=== PATIENT | female | born 1970 | race American Indian/Alaskan Native ===

== ENCOUNTER 2025-05-04 21:36 | Inpatient (IN) | payer MEDICARE ==
[~2025-05-04] VITALS: Ht 165.1 cm; Wt 108.1 kg
[2025-05-04] MEDS ORDERED: LACTATED RINGER'S 1,000 ML IV ONE (21:45)
[2025-05-04] MEDS ORDERED: IBLOOD GLUCOSE TEST STRIP 1 EA TEST XX ONE (21:45)
[2025-05-04 21:48] LABS: BASOPHILS 0.6 % (0.1-1.2); EOSINOPHILS 2.9 % (0.7-5.8); LYMPHOCYTES 12.1 % (19.3-51.7); MCH 29.2 PG (25.6-32.2); MCHC 32.1 g/dL (32.2-35.5); MCV 91.0 fL (79.4-94.8); MONOCYTES 7.5 % (4.7-12.5); NEUTROPHILS 76.4 % (34.0-71.1); RBC 4.01 M/uL (3.93-5.22)
[2025-05-04 22:25] LABS: INR 1.03 (0.80-1.30); PROTIME 12.8 Sec (11.2-14.2)
[2025-05-04] MEDS ORDERED: ACETAMINOPHEN 500 MG TAB PO ONE (22:30)
[2025-05-04 22:32] LABS: ALT (SGPT) 15.0 U/L (14-59); AST (SGOT) 20.0 U/L (15-37); GLOMERULAR FILTRATION RATE,EST 59.0 mL/min (>60); PROTEIN, TOTAL 6.9 g/dL (6.4-8.2); UREA NITROGEN 17.0 mg/dL (7-18)
[2025-05-04 22:33] LABS: LACTIC ACID, BLOOD 1.2 mmol/L (0.4-2.0)
[2025-05-04] MEDS ORDERED: ASPIRIN 81 MG CHEW PO ONE (22:45)
[2025-05-05] VITALS (15 sets, daily range): BP systolic 121–176; BP diastolic 56–74
[2025-05-05 00:05] LABS: BLOOD/HGB, URINE NEGATIVE (Negative); KETONE, URINE NEGATIVE (Negative); LEUK ESTERASE, URINE NEGATIVE (negative); NITRITE, URINE POSITIVE (negative)
[2025-05-05 00:05] LABS: CORONAVIRUS COVID-19 AG NEGATIVE (NEGATIVE)
[2025-05-05 00:11] LABS: BACTERIA, URINE 2+ /hpf (negative); CASTS, URINE NONE SEEN \\lpf; CRYSTALS, URINE NONE SEEN (0-1+); EPITHELIAL CELLS, URINE SQUAMOUS 1+ /lpf (0-1+); REFLEX CULTURE, URINE Yes (No)
[2025-05-05 00:19] LABS: AMPHETAMINES, URINE NEGATIVE (NEGATIVE); BARBITURATES, URINE NEGATIVE (NEGATIVE); BENZODIAZEPINE, URINE NEGATIVE (NEGATIVE); CANNABINOID, URINE NEGATIVE (NEGATIVE); COCAINE, URINE NEGATIVE (NEGATIVE); ECSTASY, URINE NEGATIVE (NEGATIVE); FENTANYL, URINE NEGATIVE (NEGATIVE); METHADONE, URINE NEGATIVE (NEGATIVE); OPIATES, URINE NEGATIVE (NEGATIVE); OXYCODONE, URINE NEGATIVE (NEGATIVE); PHENCYCLIDINE, URINE NEGATIVE (NEGATIVE)
[2025-05-05] MEDS ORDERED: IBLOOD GLUCOSE TEST STRIP 1 EA TEST XX PRN (00:30)
[2025-05-05] MEDS ORDERED: GLUCAGON,HUMAN RECOMBINANT 1 MG/ML VIAL SUB-Q PRN (00:30)
[2025-05-05] MEDS ORDERED: LACTATED RINGER'S 1,000 ML IV SCH (00:30)
[2025-05-05] MEDS ORDERED: DEXTROSE 5% 1,000 ML IV PRN (00:30)
[2025-05-05] MEDS ORDERED: DEXTROSE 50% 50 ML SYR IV PRN ×2 (00:30)
[2025-05-05] MEDS ORDERED: ACETAMINOPHEN 325 MG TAB PO PRN ×2 (00:30→10:45)
--- NOTE | 2025-05-05 00:55 | NUR ---
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 PATIENT IS ALERT AND ORIENTED, PATIENT TRANSFERED VIA SLIDER SHEET. SHE IS ABLE TO ANSWER ALL QUESTIONS. PUREWICK PLACED.
[2025-05-05] MEDS ORDERED: HYDROCODON-ACE1 EA10 PO (01:16)
[2025-05-05] MEDS ORDERED: BAQSIMI3 MG NAS (01:17)
[2025-05-05] MEDS ORDERED: OZEMPIC2 MG/0.75 INJ (01:19)
[2025-05-05] MEDS ORDERED: HUMALOG100 UNIT/1 SUB-Q (01:19)
[2025-05-05] MEDS ORDERED: LISINOPRIL10 MG PO (01:20)
[2025-05-05] MEDS ORDERED: LIPITOR40 MG PO (01:20)
--- NOTE | 2025-05-05 01:20 | NUR ---
[facility] IS NOT EFFECTIVE TOOL FOR ASSESSMENT WITH PATIENT SHE DOES NOT FULLY PARTICIPATE FOR EXAMPLE WHEN ASSESSING ARM DRIFT PATIENT DROPS ARM WITH NO RESISTANCE TO BED, YET WHEN HANDED HER CELL PHONE SHE WAS ABLE TO HOLD BOTH ARMS UP AND TYPE ON HER SCREEN WITNESSED BY JHONNY RN NIKIA GRIMES RN. PATIENT ALSO DENIES SENSATION OF HER LEFT LEG AND ARM, HOWEVER SHE IS NOT TO GRIMACE WITH PAINFUL STIMULI APPLIED VIA PRESSURE TO NAIL BED FOR FINGER AND TOE. SHE IS NOTED TO SPEAK CLEARLY AND APPROPRIATELY. ALERT AND ORIENTED.
[2025-05-05] MEDS ORDERED: GABAPENTIN600 MG PO (01:21)
[2025-05-05] MEDS ORDERED: METFORMIN HCL500 MG PO (01:21)
[2025-05-05] MEDS ORDERED: INSULIN GL300 UNIT/1 SUB-Q (01:23)
[2025-05-05] MEDS ORDERED: NARCAN4 MG (01:24)
[2025-05-05] MEDS ORDERED: LANTUS SOL100 UNIT/1 SUB-Q (01:24)
[2025-05-05] MEDS ORDERED: VAZALORE81 MG PO (01:25)
--- NOTE | 2025-05-05 05:06 | NUR ---
PATIENT REPORTS HEADACHE THIS AM, TYLENOL PRN ADMINISTERED. PATIENT REPORTS HER FEET ARE COLD, WARM BLANKET DRAPPED OVER HER FEET, NOTED HER MOVING HER LEFT FOOT UNDER THE BLANKET, PATIENT CONTINUES TO VERBALIZE UNABLE TO MOVE LEFT FOOT OR HAVE ANY SENSATION. PATIENT SWALLOWED TYLENOL TABLETS WELL, WITH NO ISSUES.
--- NOTE | 2025-05-05 06:50 | NUR ---
PATIENT RESTING IN BED, EYES CLOSED RESPIRATIONS REGULAR AT 20/MIN, SNORING NOTED. NO DISTRESS NOTED.
--- NOTE | 2025-05-05 07:49 | NUR ---
IN ROOM TO COMPLETE MORNING ASSESSMENT. PT CONTINUES TO HAVE LEFT SIDED WEAKNESS. PT UNABLE TO LEFT ARM. LEFT LEG MOVEMENT IMPROVED FROM ADMISSION.
[2025-05-05] MEDS ORDERED: INSULIN LISPRO 100 UNIT/ML ML SUB-Q SCH ×3 (08:00→12:00)
[2025-05-05] MEDS ORDERED: IBLOOD GLUCOSE TEST STRIP 1 EA TEST VI SCH (08:00)
[2025-05-05 08:03] LABS: BASOPHILS 0.6 % (0.1-1.2); EOSINOPHILS 1.6 % (0.7-5.8); LYMPHOCYTES 6.6 % (19.3-51.7); MCH 29.2 PG (25.6-32.2); MCHC 32.3 g/dL (32.2-35.5); MCV 90.4 fL (79.4-94.8); MONOCYTES 5.1 % (4.7-12.5); NEUTROPHILS 85.8 % (34.0-71.1); RBC 3.94 M/uL (3.93-5.22)
[2025-05-05 08:13] LABS: GLOMERULAR FILTRATION RATE,EST 62.0 mL/min (>60); UREA NITROGEN 18.0 mg/dL (7-18)
[2025-05-05] MEDS ORDERED: PHENAZOPYRIDINE HCL 100 MG TAB PO SCH (09:00)
[2025-05-05] MEDS ORDERED: MAGNESIUM SULFATE 2 GM/50 ML BAG IV SCH (09:00)
--- NOTE | 2025-05-05 09:14 | NUR ---
PT TO X-RAY AND BACK VIA WHEELCHAIR. PT TRANSFERED WITH 2 PERSON ASSIST AND A GAIT BELT. PT UNABLE TO BARE WEIGHT THROUGH LEFT LEG. PT TEARFUL AT TIMES DURING TRANSFER.
--- NOTE | 2025-05-05 09:29 | NUR ---
IN ROOM WITH PATIENT.
--- NOTE | 2025-05-05 09:51 | NUR ---
PT IN ROOM WITH PATIENT.
--- NOTE | 2025-05-05 10:12 | NUR ---
IN ROOM TO ASSIST PATIENT TO BEDSIDE COMMODE WITH THE ASSISTANCE OF PHYSICAL THERAPY. PT 2 PERSON MAX ASSIST WITH GATE BELT. PHYSICAL THERAPY REMAINS IN ROOM WITH PATIENT.
[2025-05-05] MEDS ORDERED: INSULIN GLARGINE-YFGN 100 UNIT/ML ML SUB-Q SCH ×2 (10:43→21:00)
[2025-05-05] MEDS ORDERED: ATORVASTATIN 40 MG TAB PO SCH (10:44)
[2025-05-05] MEDS ORDERED: ASPIRIN 81 MG CHEW PO SCH (10:45)
--- NOTE | 2025-05-05 11:05 | NUR ---
PT UP TO BEDSIDE COMMODE WITH 2 PERSON MAX ASSIST AND GATE BELT. PT NOW BACK TO BED. ASSISTED PATIENT IN REPOSITIONING IN BED. CALL LIGHT WITHIN REACH.
--- NOTE | 2025-05-05 11:47 | NUR ---
FAMILY AT BEDSIDE WITH PATIENT.
--- NOTE | 2025-05-05 11:55 | EKG ---
[facility] [address] [facility] [facility] [address] [place], [place] [address] Signed Sinus tachycardia Left axis deviation Low voltage QRS Cannot rule out Inferior infarct , age undetermined Cannot rule out Anterior infarct , age undetermined Abnormal ECG No previous ECGs available Confirmed by Scooter Palomares MD ([id number]) on 05/05/2025 11:54:57 AM Electronically Signed By: SCOOTER PALOMARES MD 05/05/25 1155 PATIENT NAME: BEATRICEBRENDA Electrocardiogram DATE OF : 66 PHYSICIAN: SCOOTER PALOMARES MD REPORT #: [id number] REPORT IS CONFIDENTIAL AND NOT TO BE RELEASED WITHOUT AUTHORIZATION
[2025-05-05] MEDS ORDERED: IBLOOD GLUCOSE TEST STRIP 1 EA TEST XX SCH (12:00)
[2025-05-05] MEDS ORDERED: PHARMACY RENAL DOSE ADJUSTMENT 1 DOSE MISC PO SCH (12:00)
--- NOTE | 2025-05-05 13:00 | NUR ---
PT UP TO BEDSIDE COMMODE AND BACK TO BED. 2 PERSON ASSIST. PT TOLERATED ACTIVITY WELL. CALL LIGHT WITHIN REACH. FAMILY IN ROOM.
--- NOTE | 2025-05-05 14:55 | NUR ---
PT TRANSFERRED FROM CCU VIA BED DAUGHTER IS PRESENT REPORT RECEIVED FROM CCU RN. PT IS ALERT AND COOPERATIVE ASSISTED TO BSC 2PA THEN RETURNS TO BED WATCHING TV. ORIENTED TO ROOM AND CONTROLS CALL LIGHT AND NEEDED ITEMS AT BEDSIDE
[2025-05-05] MEDS ORDERED: GABAPENTIN 300 MG CAP PO SCH (15:00)
--- NOTE | 2025-05-05 15:30 | NUR ---
ECHO BEING DONE
--- NOTE | 2025-05-05 17:18 | NUR ---
PT UP TO BSC STATES SHE IS DOING BETTER ABLE TO MOVE LEFT LE HERSELF. RETURNS TO BED WITH EVENING MEAL VISITORS PRESENT X2
--- NOTE | 2025-05-05 18:42 | NUR ---
PATIENT SITTING ON EDGE OF BED TALKING WITH VISITORS. VITALS AND I&O'S DONE AND CHARTED. CALL LIGHT IN REACH. NO FURTHER NEEDS AT THIS TIME.
--- NOTE | 2025-05-05 19:20 | NUR ---
GOT REPORT FROM DAY SHIFT NURSE.
--- NOTE | 2025-05-05 19:55 | NUR ---
PATIENT ON ROOM AIR. PATIENT TALKED ABOUT HER PAST AND EVERYTHING THATS GOING ON. SHE DOES NOT FEEL LIKE THINGS ARE IMPROVING YET BUT HOPEFUL. SHE HAS A HEADACHE THAT SHE SAID SHE HAS HAD ALL DAY. TYLENOL GIVEN. PATIENT STATES THE HEADACHE IS MORE ANNOYING THEN PAINFUL AND IN THE FRONTAL LOBE. IV'S FLUSHED AND SL. HELPED PATIENT TURN ON THE TV. FRESH ICE WATER GIVEN.
--- NOTE | 2025-05-05 21:07 | NUR ---
PATIENT ASLEEP WHEN THIS NURSE WALKED IN. IV ANTIBIOTICS RUNNING. EVENING MEDICATIONS GIVEN. LEFT ARM RESTING ON PILLOW. PATIENT WATCHING TV NOW AND DENIES ANY OTHER CARES. BED IN LOW POSITION. CALL LIGHT WITHIN REACH. BEDSIDE TABLE AT REACH WITH FLUIDS. HEADACHE IS IMPROVING. LIGHTS TURNED DOWN.
--- NOTE | 2025-05-05 22:56 | NUR ---
PATIENT CURRENTLY SLEEPING ON LEFT SIDE. REGULAR RESPIRATIONS NOTED.
[2025-05-06] VITALS (8 sets, daily range): BP systolic 128–140; BP diastolic 53–65
--- NOTE | 2025-05-06 00:21 | NUR ---
THIS RN ASSUMED CARE OF PATIENT. RECIEVED REPORT FROM JOE DAO AT THIS TIME. PT RESTING IN BED, DID NOT WAKE WHEN ENTERED ROOM. ALL PT CARE NEEDS MET, CALL LIGHT WITHIN REACH.
--- NOTE | 2025-05-06 02:00 | NUR ---
PT UP TO BEDSIDE COMMODE WITH 1PA. PT URINATING, AT THAT TIME ASSESSED. PT DENIES ANY BURNING AT THIS TIME, DOES HAVE SOME SPASMS STILL BUT WAS RELIEVED TO NOT FEEL THE PAIN WITH URINATION. FRESH ICE WATER PROVIDED. ALL PT CARE NEEDS MET, CALL LIGHT WITHIN REACH.
--- NOTE | 2025-05-06 04:00 | NUR ---
PT RESTING AT THIS TIME, RESPIRATIONS EVEN AND UNLABORED. CALL LIGHT WITHIN REACH, PT ALLOWED TO SLEEP.
--- NOTE | 2025-05-06 05:02 | NUR ---
PT RESTING WITH EYES CLOSED, RESP EVEN/UNLABORED. CALL LIGHT WTIHIN REACH REACH. WILL ALLOW PT TO SLEEP.
[2025-05-06 05:30] LABS: BASOPHILS 0.7 % (0.1-1.2); EOSINOPHILS 5.0 % (0.7-5.8); LYMPHOCYTES 22.3 % (19.3-51.7); MCH 28.6 PG (25.6-32.2); MCHC 31.9 g/dL (32.2-35.5); MCV 89.7 fL (79.4-94.8); MONOCYTES 10.0 % (4.7-12.5); NEUTROPHILS 61.7 % (34.0-71.1); RBC 3.98 M/uL (3.93-5.22)
[2025-05-06 05:39] LABS: GLOMERULAR FILTRATION RATE,EST 71.0 mL/min (>60); UREA NITROGEN 14.0 mg/dL (7-18)
--- NOTE | 2025-05-06 05:52 | NUR ---
PT RESTING IN BED, EYES OPEN WATCHING TV. PT STATES UNABLE TO MOVE (L) ARM/LEG STILL, THIS MORNING WHEN GETTING UP TO COMMODE PATIENT LOWERED HERSELF WITH BOTH ARMS. PT REQUESTING AN ADDITION OF OATMEAL TO HER BREAKFAST TRAY, MESSAGE WAS LEFT WITH DIETARY. NO OTHER NEEDS AT THIS TIME. CALL LIGHT WITHIN REACH.
--- NOTE | 2025-05-06 06:15 | NUR ---
MRI CONSENT FORM COMPLETED WITH PATIENT. FAXED TO MRI. NO OTHER NEEDS PER PATIENT AT THIS TIME.
--- NOTE | 2025-05-06 06:24 | NUR ---
PT LEAVING FLOOR AT THIS TIME FOR MRI. CCU NOTIFIED WE ARE TAKING THE TELEMETRY OFF PATIENT FOR IMAGING. PT LEFT IN WHEELCHAIR WITH RADIOLOGY.
[2025-05-06] MEDS ORDERED: LORazepam 2 MG/ML VIAL IV ONE (06:30)
--- NOTE | 2025-05-06 06:30 | NUR ---
DIRECTOR PRINT IN ROOM. pt AWAKE. TELE REMOVED. pt STATES "THEY HAD TO GIVE ME SOMETHING TO CALM ME DOWN LAST TIME". PHONE CALL TO MD, NEW ORDERS RECEIVED AND REPEATED BACK. EMAR UPDATED. ATTEMPT TO CALL TELEPHARMACY, NO ANSWER.
[2025-05-06] MEDS ORDERED: MAGNESIUM SULFATE 2 GM/50 ML BAG IV SCH (07:45)
--- NOTE | 2025-05-06 07:52 | NUR ---
HOURLY ROUNDING. PATIENT WAS A TWO PERSON ASSIT PIVOT TO THE RECLINER CHAIR. PATIENT BRUSHED HER TEETH AND DID RETA CARE THIS MORNING. LINENS HAVE BEEN CHANGED OUT. PATIENT IS NOW IN THE CHAIR READY TO EAT BREAKFEAST. BOARD HAS BEEN UPDATED AND CALL LIGHT HAS BEEN PLACED WITHIN REACH. PATIEN REQUEST ICE WATER, ICE WATER WAS GIVEN. NO FURTHER REQUEST FROM PATIENT AT THIS TIME.
[2025-05-06 07:58] LABS: CHOLESTEROL/HDL RATIO 1.9; LDL CHOLESTEROL 51.0 mg/dL (< 129); NON-HDL CHOLESTEROL 65.0; VLDL CHOLESTEROL 14.0
[2025-05-06] MEDS ORDERED: INSULIN LISPRO 100 UNIT/ML ML SUB-Q SCH (08:00)
--- NOTE | 2025-05-06 08:08 | NUR ---
PATIENT UP TO CHAIR TO EAT BREAKFAST, 1PA PIVOT ASSIST. MORNING ASSESSMENT IS COMPLETE, PATIENT DENIES PAIN AND NAUSEA. 11 UNITS OF NOVOLOG GIVEN WITH BREAKFAST. BG IS 291. PATIENT IS TO HAVE MRI AT 0830 AND PLAN TO GIVEN 0.5MG OF IV ATIVAN JUST PRIOR TO IMAGING. NO OTHER NEEDS AT THIS TIME.
--- NOTE | 2025-05-06 08:12 | NUR ---
MAG CITRATE ORDERED PER PATIENT, THIS IS SOMETHING SHE TAKES AT HOME TO HAVE BM. PATIENT'S LAST KNOWN BM WAS 05/03/25.
[2025-05-06] MEDS ORDERED: MAGNESIUM CITRATE 300 ML BTL PO ONE (08:15)
--- NOTE | 2025-05-06 08:32 | NUR ---
PATIENT GIVEN 0.5MG OF IV ATIVAN, WC TO MRI WITH DANICA.
[2025-05-06] MEDS ORDERED: ENOXAPARIN SODIUM 40 MG/0.4 ML SYR SUB-Q SCH (09:00)
--- NOTE | 2025-05-06 09:13 | NUR ---
PATIENT IS BACK FROM MRI, ASSISTED TO BED. 0900 MEDICATIONS GIVEN. NO OTHER NEEDS AT THIS TIME.
--- NOTE | 2025-05-06 09:21 | NUR ---
HOURLY ROUNDING. PATIENT IS CURRENTLY WITH CASE MANAGEMENT. NO REQUEST FROM PATIENT AT THIS TIME. CALL LIGHT HAS PLACED WITHIN REACH. FEMALE MATEUSZ LEE DC NURSE HAS BEEN NOTIFIED
--- NOTE | 2025-05-06 09:30 | NUR ---
INTO SEE PATIENT. PERSONAL HEALTH INFORMATION REVIEWED. PAT[place] WITH . ONE STEP INTO. PATIENT STATES SHE HAS DIFFCULTY GETTING INTO. PATIENT USES NO DME AT BASELINE. DRIVES STILL. PATIENT DENIES ANY DIFFCUTLY PAYING UTLITIES OR OBTAINING FOOD. TALKED WITH HER ABOUT PT, OT AND MD WANTING HER TO GO TO SNF.
--- NOTE | 2025-05-06 09:32 | NUR ---
PT SITTING UP IN BED WITH EYES OPEN. CHEST RISE IS EQUAL AND UNLABORED. 0900 MEDICATIONS ADMINISTERED, PATIENT TOLERATED WELL. PT DENIES CONCERNS AT THIS TIME. CALL LIGHT AND PERSONAL BELONGINGS IN REACH.
[2025-05-06] MEDS ORDERED: OXYCODONE HCL5 M1 PO (10:22)
--- NOTE | 2025-05-06 10:45 | NUR ---
PATIENT UP TO COMMODE TO VOID, BACK TO CHAIR. NO OTHER NEEDS AT THIS TIME.
--- NOTE | 2025-05-06 11:33 | NUR ---
UR CLINICAL REVIEW: MCG-PER MCG REVIEW MEETS INPT FOR CVA WITH INCREASED LEFT SIDED WEAKNESS [facility] 05/05/25 @ 1040 ORDER MATCHES REG CLINICALS FAXED TO [facility] FOR AUTH REVIEW DISCHARGE PENDING FURTHER CASE MANAGEMENT EVAL. PT/OT RECOMMEND SNF 05/07/25 DC
--- NOTE | 2025-05-06 12:02 | NUR ---
PT SITTING UPRIGHT IN CHAIR. EYES OPEN, CHEST RISE EQUAL BILATERALLY AND UNLABORED. BLOOD SUGAR CHECKED AND PATIENT WITH MEAL IN FRONT OF HER. SCHEDULED INSULIN ADMINISTERED, PATIENT TOLERATED WELL. PERSONAL ITEMS AND CALL LIGHT IN REACH. PATIENT DENIES CONCERNS AT THIS TIME.
--- NOTE | 2025-05-06 12:14 | NUR ---
CHART FAXED TO [facility] (FAX NUMBER [phone]). CRISTINA DOTSON COORDINATOR (PHONE NUMBER [phone]) TO REVIEW. NO BEDS AVAIABLE NOW BUT POTENTIALLY AT THE END OF THE WEEK.
--- NOTE | 2025-05-06 12:32 | NUR ---
medications reconciled using pharmacy records
--- NOTE | 2025-05-06 13:03 | NUR ---
HOURLY ROUNDING. PATIENT JUST FINISHED LUNCH. NO REQUEST AT THE MOMMENT, FAMILY IS AT BEDSIDE. CALL LIGHT HAS BEENPLACED WITHIN REACH.
--- NOTE | 2025-05-06 13:28 | NUR ---
PT ON BEDSIDE COMMODE REQUESTING TO TRANSFER BACK TO CHAIR. PATIENT VOIDED. PT TOLERATED TRANSFER WELL. PATIENT WITH EVEN AND UNLABORED RESPIRATIONS BILATERALLY. PERSONAL BELONGINGS AND CALL LIGHT IN REACH. PATIENT DENIES FURTHER CONCERNS AT THIS TIME.
--- NOTE | 2025-05-06 13:40 | NUR ---
[facility] DENIED DUE TO BED AVAILABILTY
--- NOTE | 2025-05-06 14:20 | NUR ---
PATIENT GIVEN 1500 MEDICATIONS.
--- NOTE | 2025-05-06 14:22 | NUR ---
CHART FAXED TO [facility] FOR POTENTIAL PLACEMENT.
--- NOTE | 2025-05-06 14:36 | NUR ---
TALKED WITH [facility] COORINATOR. PATIENT CHART PENDING. THEY WILL REACH OUT TO US WITH A DECISION.
--- NOTE | 2025-05-06 14:57 | NUR ---
ROWENA MATA. PATIENT WAS A PIVOT TO THE SHOWER CHAIR FROM THE RECLINER. I ASSISTED PATIENT TO THE BATHROOM FOR AN SHOWER THAT WAS ALSO ASSISTED. PATIENT HAS A NEW GOWN ON AND LINENS HAVE BEEN CHANGED, ROOM TIDY. NO FURTHER REQUEST FROM PATIENT AT THIS TIME
--- NOTE | 2025-05-06 16:27 | NUR ---
PATIENT IS SITTING UP TO CHAIR, DENIES PAIN OR OTHER NEEDS. ICE WATER REFILLED.
--- NOTE | 2025-05-06 16:39 | NUR ---
HOURLY ROUNDING. PATIENT IS SITTING IN RECLINER CHAIR, NO REQUEST FROM PATIENT AT THIS TIME. CALL LIGHT HAS BEENPLACED WITHIN REACH. BLOOD GLUCOSE HAS BEEN CHECKED AND DOCUMENTED
--- NOTE | 2025-05-06 17:30 | NUR ---
PT SITTING UPRIGHRT IN CHAIR EATING MEAL. EYES OPEN, CHEST RISE EQUAL AND UNLABORED. PERSONAL BELONGINGS AND CALL LIGHT IN REACH. PATIENT ASSISTED OFF COMMODE, VOIDED. PT DENIES CONCERNS AT THIS TIME.
--- NOTE | 2025-05-06 19:40 | NUR ---
RECEIVED REPORT FROM MARY DOMÍNGUEZ. PT SITTING IN CHAIR, WANTING ASSISTANCE TO GET BACK IN BED. 1 PA/PIVOT FROM CHAIR TO BED. REMOVED SOCKS. SALINE LOCKED IV X2 - FLUSHES WELL, NO PAIN. PT DENIES PAIN. ABLE TO MOVE HER FINGERS/TOES AT THIS TIME SLIGHTLY. REPORTS NUMBNESS/TINGLING WHICH IS HER BASELINE. FRESH ICE WATER PROVIDED, ALONG WITH ICE FOR SODA. DENIES BURNING WITH URINATION TODAY, WILL MONITOR UOP. ALL PT CARE NEEDS MET, CALL LIGHT WITHIN REACH. PT LEFT WATCHING TV AT THIS TIME.
--- NOTE | 2025-05-06 21:57 | NUR ---
PATIENTS IV ABX COMPLETED INFUSING. PATIENT SL PER ORDER. PATIENT UP TO BSC A SBA. PATIENT ABLE TO VOID. PATIENT COMPLETED SELF CARE. PATIENT IS BACK IN BED RESTING. PATIENT DENIES ANY FURTHER NEEDS. CALL LIGHT IN REACH.
[2025-05-07] VITALS (10 sets, daily range): BP systolic 124–140; BP diastolic 55–66
--- NOTE | 2025-05-07 00:06 | NUR ---
PT RESTING IN BED, LIGHT OFF. RESP EVEN/UNLABORED. CALL LIGHT WITHIN REACH. NO PATIENT CARE NEEDS AT THIS TIME.
--- NOTE | 2025-05-07 01:35 | NUR ---
TELEMETRY LEAD FELL OFF, PT AWOKEN TO ADJUST. ANALYTICAL SCIENTIST PRESENT TO TAKE VITALS. DENIES ANY NEEDS AT THIS TIME. CALL LIGHT WITHIN REACH. TELEMETRY NOW READING SR 68.
--- NOTE | 2025-05-07 04:11 | NUR ---
PT RESTING IN BED AT THIS TIME, PLAYING ON HER PHONE. DENIES ANY NEEDS AT THIS TIME. CALL LIGHT WITHIN REACH.
[2025-05-07 05:16] LABS: BASOPHILS 0.9 % (0.1-1.2); EOSINOPHILS 4.4 % (0.7-5.8); LYMPHOCYTES 20.5 % (19.3-51.7); MCH 29.0 PG (25.6-32.2); MCHC 31.7 g/dL (32.2-35.5); MCV 91.2 fL (79.4-94.8); MONOCYTES 7.2 % (4.7-12.5); NEUTROPHILS 66.7 % (34.0-71.1); RBC 4.11 M/uL (3.93-5.22)
[2025-05-07 05:32] LABS: GLOMERULAR FILTRATION RATE,EST 65.0 mL/min (>60); UREA NITROGEN 16.0 mg/dL (7-18)
--- NOTE | 2025-05-07 06:45 | NUR ---
PT WAS UP TO BSC, SHE WAS ABLE TO TRANSFER SELF TO COMMODE AND BACK TO BED. SHE DID NOT SOME ASSISTANCE GETTING HER (L) FOOT BACK INTO THE BED. LOTS OF FLATUS, BM THIS MORNING. CALL LIGHT WITHIN REACH, REQUEST MENU TO PUT IN SPECIFIC ORDER THIS MORNING. ALL PT CARE NEEDS MET AT THIS TIME.
--- NOTE | 2025-05-07 07:20 | NUR ---
REPORT RECEIVED FROM JOE CAVAZOS.
--- NOTE | 2025-05-07 08:15 | NUR ---
RECEIVED CALL FROM [facility] AND THEY WILL LIKELY HAVE BEDS AVAILABLE TOMORROW. REFERRAL FAXED TO [phone]
--- NOTE | 2025-05-07 08:54 | NUR ---
PT UP IN CHAIR EATING BREAKFAST. LUNGS SLIGHTLY CRACKLY OR RIGHT LQ. GIVEN IS AND INSTRUCTED. SCHEDULED MEDS GIVEN AND EDUCATED ON INCREASED INSULIN DOSE. PT WONDERING WHY SHE IS NOT TAKING HER HOME METFORMIN.
[2025-05-07] MEDS ORDERED: INSULIN GLARGINE-YFGN 100 UNIT/ML ML SUB-Q SCH (09:00)
--- NOTE | 2025-05-07 09:23 | NUR ---
HOURLY ROUNDING. PATIENT SITTING IN RECLINER CHAIR DOING AM CARE. CLEANED AND TIDY PATIENT ROOM. NO REQUEST FROM PATIENT AT THIS TIME. PATIENT IS NOW BRUSHING HET TEETH. CALL LIGHT HAS BEEN PLACED WITHIN REACH AND BOARD HAS BEEN UPDATED
--- NOTE | 2025-05-07 09:37 | NUR ---
Spoke with Dorcas from [facility]. She is working on auth for placement for this pt. She called to check if pt will be on an IV antibiotic for her UTI and if the pt has wounds. Reviewed chart and spoke with Dr. Mock and he denies both. Dorcas was on speaker. She will call back when she finds a SNF they contract with.
--- NOTE | 2025-05-07 09:48 | NUR ---
SITTING UP IN RECLINER. DISCUSSED DC PLAN. INFORMED NO ACCEPTANCE TO SNF AT THIS TIME AND UPDATED THAT CHART WAS SENT TO [facility] THIS AM. VERBALIZES UNDERSTANDING. STATES SHE DOES FEEL SHE COULD GO HOME BECAUSE SHE WAS ABLE TO PIVOT THIS MORNING. STATES AFTER HER CVA, SHE DID HOME HEALTH 7 DAYS/WEEK THAT WAS PAID OUT OF POCKET BY FAMILY MEMBERS. STATES SHE SPOKE TO HER PHYSICIAN YESTERDAY AND WAS TOLD THEY WILL SEE HER THE DAY AFTER DISCHARGE AND SEND ANY REFERRALS FOR HOME HEALTH, OUTPATIENT PT, WHATEVER PATIENT NEEDS. STATES HER FAMILY WILL GET HER A HOSPITAL BED AND WHEELCHAIR IF NEEDED WELL. INFORMED HER WILL RETURN THIS AFTERNOON AFTER SHE HAS WORKED WITH PT AND FURTHER DISCUSS WHAT SHE IS WANTING TO DO. VERBALIZES UNDERSTANDING.
--- NOTE | 2025-05-07 10:32 | NUR ---
PT SITTING UPRIGHT IN CHAIR SPEAKING ON PHONE. EYES OPEN, CHEST RISE EQUAL AND UNLABORED. PERSONAL BELONGINGS AND CALL LIGHT IN REACH. PATEINT DENIES CONCERNS AT THIS TIME.
--- NOTE | 2025-05-07 10:54 | NUR ---
RECEIVED CALL FROM [facility]. PATIENT CAN BE ACCEPTED TO [facility] TODAY. SPOKE WITH PATIENT, UNABLE TO OBTAIN TRANSPORTATION UNTIL TOMORROW. CALLED [facility] AND SPOKE WITH CHERISE IN ADMITTING AND INFORMED HER PATIENT CAN COME TO THEIR FACILITY AND BE THERE EARLY IN THE AFTERNOON TOMORROW. STATES THAT WILL WORK BETTER FOR THEM WELL. FAX NUMBER TO THEIR FACILITY IS [phone] FOR ORDERS TO BE SENT TOMORROW WHEN PATIENT IS DISCHARGED. CHERISE STATES SHE WILL CALL AND CHECK IN TOMORROW MORNING TO VERIFY THAT PATIENT IS STILL PLANNING TO COME TOMORROW.
--- NOTE | 2025-05-07 11:46 | NUR ---
DISCHARGE REVIEW: PER CM PLACEMENT BARRIER NOTED. WILL NEED PLACEMENT TO OUT OF AREA FACILITY [facility]GE [facility] WHEN STABLE ADD 05/08/25 PENDING TRANSPORT NO ACTIONS REQUIRED
--- NOTE | 2025-05-07 12:54 | NUR ---
DR. BURGESS IN TO SEE PATIENT. PATIENT GIVEN 4UNITS MEALTIME INSULIN PLUS 13UNITS OF SLIDING SCALE FOR BG 389. 1000 MG OF PO METFORMIN GIVEN WITH LUNCH.
--- NOTE | 2025-05-07 13:18 | NUR ---
HOURLY ROUNDING. PATIENT SITTING IN RECLINER WATCHING TV. PATIENT HAS NO REQUEST AT THE MOMMENT. CALL LIGHT HAS BEEN PLACED WITHIN REACH.
--- NOTE | 2025-05-07 15:23 | NUR ---
ADMININSTERED SCHEDULED MEDS. PT EXCITED HOW WELL SHE DID WITH PHYSICAL THERAPY. WORKING ON EXERCISES OT GAVE HER TO DO.
[2025-05-07] MEDS ORDERED: CEFDINIR300 MG PO (15:35)
[2025-05-07] MEDS ORDERED: OXYCODONE HCL5 M1 PO (15:41)
[2025-05-07] MEDS ORDERED: HYDROCODON-ACE1 EA10 PO (15:41)
--- NOTE | 2025-05-07 16:17 | NUR ---
ORDERS FAXED TO [facility] [phone]
--- NOTE | 2025-05-07 17:12 | NUR ---
PT SITTING UP IN CHAIR EATING DINNER. WENT OUTSIDE.
--- NOTE | 2025-05-07 18:21 | NUR ---
PT ATE DINNER. REFILLED ICE CUP. DENIES CONCERNS.
--- NOTE | 2025-05-07 18:28 | NUR ---
HOURLY ROUNDING. PATIENT SITTING IN RECLINER, AT BEDSIDE. NO REQUEST FROM PATIENT, FILLED PATIENT WATERCUP. CALL LIGHT PLACED WITHIN REACH. I PROVIDED THE HUDBAND WITH BLANKET AND PILLOWS FOR STAYING OVER NIGHT
--- NOTE | 2025-05-07 19:19 | NUR ---
RECEIVED REPORT FROM JOE HORTON. PT UP IN CHAIR. DENIES NEEDS OR CONCERNS AT THIS TIME OTHER THAN FRESH ICE-PROVIDED. CALL LIGHT WITHIN REACH.
--- NOTE | 2025-05-07 20:15 | NUR ---
PT RESTING IN BED. SPOUSE AT BEDSIDE. PT REPORTS HEADACHE 05/09-MEDICATED W/ PRN TYLENOL. USES CALL LIGHT APPROPRIATELY. HRR. BTA, REPORTS LBM YESTERDAY. VOIDS WNL, DENIES DYSURIA. LEFT HEMIPARESIS, LUE 4/5, LLE 4/5 EXCEPT LEG LIFT 2/5 (UNABLE), SENSATION INTACT. LAC & RAC IV SL'D, WNL. BG ELEVATED, REQUIRED SLIDING SCALE W/ SCHEDULED LANTUS-SEE EMAR. CALL LIGH WITHIN REACH.
[2025-05-07] MEDS ORDERED: CEFDINIR 300 MG CAP PO SCH (21:00)
--- NOTE | 2025-05-07 22:41 | NUR ---
APPEARS ASLEEP. SPOUSE ASLEEP AT BEDSIDE.
--- NOTE | 2025-05-08 00:36 | NUR ---
SLEEPING SOUNDLY. APPEARS COMFORTABLE.
[2025-05-08 01:30] VITALS: BP 154/62
[2025-05-08 02:23] VITALS: BP 154/62
--- NOTE | 2025-05-08 02:42 | NUR ---
PT AWAKE, PLAYING ON PHONE. DENIES NEEDS AT THIS TIME.
[2025-05-08 04:38] VITALS: BP 151/55
--- NOTE | 2025-05-08 04:54 | NUR ---
PT CALLED TO SPEAK TO RN. PT QUESTIONING NEED TO GO TO SNF UPON D/C THIS AM. PT FEELS SHE IS AT BASELINE AND CAN GO HOME. PT ENCOURAGED TO TALK W/ THIS AM WHEN HE COMES IN TO DO HER D/C PAPERWORK.
[2025-05-08 05:02] VITALS: BP 151/55
--- NOTE | 2025-05-08 05:03 | NUR ---
DX: UTI, EXACERBATION LEFT HEMIPARESIS SYMPTOMS. PT VISITING FROM [place]. CVA RULED OUT BY CT & MRI. BASELINE LEFT ATIYA FROM PREVIOUS CVA, IMPROVING. SBA W/ FWW TO BR. VOIDS WNL. ATB'S. PLAN D/C TODAY TO SNF [place]-PT HAVING 2ND THOUGHTS ABOUT SNF, MAY WANT TO GO HOME. TELEMETRY.
[2025-05-08 05:22] LABS: BASOPHILS 0.9 % (0.1-1.2); EOSINOPHILS 4.1 % (0.7-5.8); LYMPHOCYTES 20.7 % (19.3-51.7); MCH 28.8 PG (25.6-32.2); MCHC 32.2 g/dL (32.2-35.5); MCV 89.5 fL (79.4-94.8); MONOCYTES 6.6 % (4.7-12.5); NEUTROPHILS 67.4 % (34.0-71.1); RBC 4.30 M/uL (3.93-5.22)
[2025-05-08 05:38] LABS: GLOMERULAR FILTRATION RATE,EST 59.0 mL/min (>60); UREA NITROGEN 21.0 mg/dL (7-18)
--- NOTE | 2025-05-08 07:21 | NUR ---
RECIEVED SHIFT REPORT. PT IS AWAKE IN BED, AT BEDSIDE. PT FAMILY EAGER TO LEAVE AND REQUESTING DC PAPERS. IT WAS DISCUSSED IS NOT ON THE FLOOR YET. CALL LIGHT IN REACH
--- NOTE | 2025-05-08 07:35 | NUR ---
THIS RN, DOCTOR, AND CASE MANAGEMENT IN ROOM TO DISCUSS POC. PT IS NO LONGER WANTING TO GO TO A FACILITY. PT IS BRUSHING TEETH, STANDING UP AND WALKING AROUND ROOM WITHOUT WALKER.
--- NOTE | 2025-05-08 07:40 | NUR ---
PATIENT INFORMING STAFF SHE DOES NOT WANT SNF. IN TO SEE PATIENT, HER IN ROOM WITH HER. STATES SHE HAS FULL MOVEMENT OF LEFT ARM AND IS ABLE TO WALK WITHOUT ASSISTANCE NOW. MOVES ARM AND DEMONSTRATES HER ABILITY TO WALK. STATES SHE DOES NOT WANT TO GO TO A SNF. CALLED [facility] AND LEFT MESSAGE NOTIFYING THEM PATIENT IS NO LONGER GOING TO BE ADMITTED TO THEIR FACILITY SHE DOES NOT FEEL SHE NEEDS TO GO TO SNF.
--- NOTE | 2025-05-08 07:46 | NUR ---
NOTIFIED OF PT BLOOD SUGAR. JENIFER WILL PUT IN NEW ORDERS.
[2025-05-08] MEDS ORDERED: INSULIN LISPRO 100 UNIT/ML ML SUB-Q SCH (08:00)
== END 2025-05-08 08:26 | disposition home or self-care (01) | DRG 872 ==
LOC: ED 21:36 → CCU 21:37 → MS 05-05 10:40 → CCU 05-05 10:41 → MS 05-05 10:41
PROVIDERS: Family Medicine; Internal Medicine; ADMIT Student in an Organized Health Care Education/Training Program; ATTEND Student in an Organized Health Care Education/Training Program
DX: A41.9 Sepsis, unspecified organism (principal); I69.354 Hemiplegia and hemiparesis following cerebral infarction affecting left non-dominant side; N39.0 Urinary tract infection, site not specified; Z68.41 Body mass index [BMI] 40.0-44.9, adult; E66.9 Obesity, unspecified; E11.42 Type 2 diabetes mellitus with diabetic polyneuropathy; I10 Essential (primary) hypertension; R29.810 Facial weakness; R47.81 Slurred speech; E11.65 Type 2 diabetes mellitus with hyperglycemia; Z90.5 Acquired absence of kidney; Z85.3 Personal history of malignant neoplasm of breast; Z79.4 Long term (current) use of insulin; Z79.85 Long-term (current) use of injectable non-insulin antidiabetic drugs; Z79.82 Long term (current) use of aspirin; Z79.891 Long term (current) use of opiate analgesic; Z79.899 Other long term (current) drug therapy
CPT/HCPCS: 36415; 51702; 70450; 70496; 70498; 70551; 71045; 71046; 80048; 80053; 80061; 80307; 81001; 83036; 83605; 83735; 84484; 85025; 85610; 85730; 87040; 87088; 93005; 93010; 93306; 97112; 97116; 97163; 97166; 97530; 97535; 99285-25; A9270; G0378; J0696; J1650; J1815; J2060; J3475; J7121; Q9967